=== PATIENT | female | born 1970 | race Caucasian/White ===

== ENCOUNTER 2020-11-18 21:18 | Emergency (ER) | payer BC, SELFPAY ==
[2020-11-18 21:23] VITALS: BP 132/72; PULSE 71; RESP 18; TEMP 36.8; O2SAT 98
--- NOTE | 2020-11-18 21:27 | ED.GENADUL_ITS ---
Discharge Plan Disposition Patient Disposition: HOME Condition: Good Discharge Details Clinical Impression: Allergic reaction to insect bite Primary Care Provider: Chiara Eduardo ED Provider: Curtis Guzman Meds and New Rx's Prescriptions: New prednisone 20 mg tablet 40 mg PO HS Qty: 4 RF: 0 Continued pyridostigmine bromide 60 mg tablet 60 mg PO TID RF: 0 calcium carbonate [Calcium 500] 500 mg calcium (1,250 mg) tablet 500 mg PO DAILY RF: 0 cholecalciferol (vitamin D3) 25 mcg (1,000 unit) tablet 25 mcg PO DAILY RF: 0 estradiol [Yuvafem] 10 mcg tablet 10 mcg vaginal .2x/week RF: 0 levothyroxine [Synthroid] 88 mcg tablet 88 mcg PO .4x/week RF: 0 levothyroxine [Synthroid] 100 mcg tablet 100 mcg PO .3x/week RF: 0 ibuprofen 200 mg tablet 200 - 800 mg PO PRN RF: 0 Discharge Instructions Instructions: General Allergic Reaction (ED) Additional Instructions: You may still wake up with swelling around her eyes in the morning. Hopefully the prednisone burst and continued Benadryl will help ameliorate this problem. Follow-up with primary care after prednisone burst if not improving. Return to the ED for fever, pain, eye involvement, breathing difficulty. Referrals: Chiara Eduardo MD [Primary Care Provider] - Medical Decision Making Localized allergic type reaction to insect bite involving scalp, forehead, periorbital region. No evidence of infection. No eye, oral/pharyngeal or airw ay involvement. Does have history of myasthenia but has tolerated prednisone in the past. Will provide a short 3-day burst and have her continue Benadryl as well. Follow-up with primary care if no improvement after the prednisone burst. Return to ED if worsening symptoms, fever, pain, other concerns. HPI General Mode of arrival: ambulatory . Date/Time Provider Initiated Documentation: 11/18/20 21:19 . Limitations to Documentation: no limitations . Information obtained by: patient, RN notes reviewed and old records reviewed . HPI Narrative: Patient presents to ED with swelling, pruritus, erythema along her forehead and periorbital region. Patient reports going out for a trail run this afternoon. She had multiple insect bite. She has subsequently developed pruritus, swelling does respond to oral Benadryl but recurs as the medicine weans off. Right side seems more affected to the left. Denies pain at all. No actual eye involvement. No throat or tongue symptoms. No difficulty breathing. Was concerned due to the periorbital swelling and came in for evaluation. Related Data Home Medications Medication Instructions Recorded Confirmed calcium carbonate 500 mg calcium 500 mg PO DAILY 08/21/20 11/18/20 (1,250 mg) tablet cholecalciferol (vitamin D3) 25 25 mcg PO DAILY 08/21/20 11/18/20 mcg (1,000 unit) tablet estradiol 10 mcg vaginal tablet 10 mcg VAGINAL .2x/week tab 08/21/20 11/18/20 pyridostigmine bromide 60 mg tablet 60 mg PO TID 08/21/20 11/18/20 ibuprofen 200 mg tablet 200 - 800 mg PO PRN tab 08/22/20 11/18/20 levothyroxine 100 mcg tablet 100 mcg PO .3x/week tab 08/22/20 11/18/20 levothyroxine 88 mcg tablet 88 mcg PO .4x/week tab 08/22/20 11/18/20 prednisone 40 mg PO HS #4 tab 11/18/20 Previous Rx's Medication Instructions Recorded prednisone 40 mg PO HS #4 tab 11/18/20 Allergies Allergy/AdvReac Type Severity Reaction Status Date / Time morphine Allergy Severe resp Verified 11/18/20 21:27 depression regadenoson Allergy Severe hypotension, Verified 11/18/20 21:27 limb paralysis prednisone AdvReac Intermediate see Comment Verified 11/18/20 21:27 See note AdvReac Myasthenic Uncoded 11/18/20 21:27 decompensation General Stated Complaint: Allergic GUILLERMO: 4 Review of Systems Narrative: As documented in HPI otherwise negative as below. Const: no fever, chills, weakness Resp: no cough, SOB, pleuritic pain CV: no CP, diaphoresis, edema, syncope GI: no abdominal pain, nausea, vomiting, diarrhea Neuro: no headache, numbness, focal weakness, confusion [facility] Medical History Graves disease H/O radioactive iodine thyroid ablation HTN (hypertension) Hypothyroidism Leukocytopenia, unspecified with MG crisis Maternal care for incarceration of gravid uterus (1999) Neuropathy intermittent & persistent in hands, feet, neck and/or back Premature surgical menopause (2002) CATHERINE BSO at 36 yo 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 Surgical History History of (1999) History of hysterectomy (2002) Family History Mother Dementia Social History Smoking/Tobacco Use Status: Never Smoking risk assessment performed?: Yes Alcohol Intake: current Alcohol Intake frequency: a few times a month Alcohol type: beer and wine Drug use: Never Substance use type: does not use Details: no iv drug use Adopted: No Caregiver/Support person: No Foster care: No Household members: spouse Housing: house Number of Children: 1 Education Level: college Do you need help understanding health information?: Never 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[employer] Sexually active: Yes Do you think of yourself as: straight/heterosexual Current gender identity: female What is your relationship status?: Panel score (0-1 are the most socially isolated patients): 1 What type of physical activity do you participate in: bicycling and regular exercise Frequency: daily Seatbelt use: always Helmet use: Yes Drive intox or ride w/intox 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 HEENT: NC/AT. Mild erythema involving forehead. Mild erythema and swelling involving periorbital region right greater than left. No lip, tongue, oropharyngeal edema. Eyes: Normal conjunctiva and sclera. Neck: Supple. Trachea midline. Lungs: Normal respiratory effort. Lungs are clear. Cor: RRR without murmur/gallop. Neuro: A+O x 3. Normal speech, mentation, gait. Cranial nerves II - XII grossly intact. No gross motor or sensory deficit. Skin: Warm and dry without rash. Course Vital Signs Vital signs: Vital Signs Temperature 98.2 F 11/18/20 21:23 Pulse 71 11/18/20 21:23 Respiratory Rate 18 11/18/20 21:23 Blood Pressure 132/72 06/20/21 21:23 Pulse Oximetry 98 11/18/20 21:23 Temperature 98.2 F 11/18/20 21:23 Pulse 71 11/18/20 21:23 Respiratory Rate 18 11/18/20 21:23 Blood Pressure 132/72 11/18/20 21:23 Pulse Oximetry 98 11/18/20 21:23 Pain Level 2 11/18/20 21:23
[2020-11-18] MEDS: predniSONE 20 MG TAB 40 MG PO (21:40)
== END 2020-11-18 21:46 | disposition home or self-care (01) ==
PROVIDERS: Emergency Provider Emergency Medicine; PCP Internal Medicine
DX: T63.481A Toxic effect of venom of other arthropod, accidental (unintentional), initial encounter (principal); L29.8 Other pruritus; R22.0 Localized swelling, mass and lump, head
CPT/HCPCS: 99283; J7512

== ENCOUNTER 2020-11-28 03:26 | Outpatient (CLI) | payer BC, SELFPAY ==
[2020-11-28 12:22] LABS: TSH (W/Ref FT4) 4.65 uIU/mL (0.36-3.74)
[2020-11-28 12:42] LABS: FREE T4 1.13 ng/dL (0.76-1.46)
== END 2020-11-28 03:27 | disposition home or self-care (01) ==
LOC: LBO 03:26
PROVIDERS: PCP Internal Medicine; Visit Provider Internal Medicine
DX: E03.9 Hypothyroidism, unspecified (principal)
CPT/HCPCS: 36415; 84439; 84443

== ENCOUNTER 2021-01-10 03:18 | Outpatient (CLI) | payer BC, SELFPAY ==
--- NOTE | 2021-01-10 07:45 | DI.DEXA_ITS ---
Exam(s) XR DEXA BONE DENSITY W/WO MANUEL EXAM: XR DEXA BONE DENSITY W/WO MANUEL CLINICAL HISTORY: osteopenia,f/u previous outside study,m85.80 TECHNIQUE: COMPARISON: No exams were available for comparison FINDINGS: Lateral Spine Image: Unremarkable. No compression deformities identified. Left hip: Total T-Score: -0.8 Total Z-Score: -0.2 T- and Z-scores: Within normal limits. Lumbar Spine: Total T-Score: -2.3 Total Z-Score: 1.4 T- and Z-scores: Findings consistent with osteopenia. IMPRESSION: Findings consistent with osteopenia in the lumbar spine.
== END 2021-01-10 03:38 ==
PROVIDERS: PCP Internal Medicine; Visit Provider Internal Medicine
DX: M85.80 Other specified disorders of bone density and structure, unspecified site (principal)
CPT/HCPCS: 77080

== ENCOUNTER 2021-01-30 01:51 | Outpatient (CLI) | payer BC, SELFPAY ==
--- NOTE | 2021-01-30 08:45 | DI.MAMMO_ITS ---
Exam(s) MAMMO SCREENING EXAM: MAMMO SCREENING CLINICAL HISTORY: screening,Z12.39 TECHNIQUE: Mammograms were interpreted according to the usual protocol including computer analysis w Smartaxi CAD system, tomosynthesis and C-view imaging. COMPARISON: 2015 through 2019 FINDINGS: The breasts are composed of heterogeneously dense fibroglandular densities, Breast Density category C . No suspicious masses or suspicious microcalcifications are seen. No skin thickening or abnormal axillary lymph nodes are seen. There has been no significant change from prior exams. IMPRESSION: BI-RADS Category 1, Negative mammogram. Yearly screening mammography is recommended. Breast Density Category C, heterogeneously Dense. The mammogram demonstrates the patient's breast tissue is dense. Dense breast tissue is very common a nd is not abnormal but dense breast tissue can make it harder to find cancer on a mammogram. Also, de nse breast tissue may increase breast cancer risk. This information about the result of the mammogram report was provided to the patient to raise their awareness. Use this report when you speak with the patient about their risks for breast cancer, which includes their family history. At that time, you may recommend additional screening tests (Ultrasound or MRI) as they might be useful based on their r isk. A negative radiographic report should not delay biopsy if a dominant or clinically suspicious mass is present. Up to ten percent of cancers are not identified on mammography. A negative report may reinforce clinical impression. Adenosis and dense breasts may obscure an underlying neoplasm. False positive reports average 6 to 10%.
== END 2021-01-30 02:11 ==
PROVIDERS: PCP Internal Medicine; Visit Provider Internal Medicine
DX: Z12.31 Encounter for screening mammogram for malignant neoplasm of breast (principal)
CPT/HCPCS: 77063; 77067

== ENCOUNTER 2021-02-15 14:51 | Observation (INO) | payer BC, SELFPAY ==
[2021-02-15] VITALS (53 sets, daily range): BP systolic 103–163; BP diastolic 64–88; PULSE 46–92; RESP 9–25; TEMP 36–36.5; O2SAT 94–100
--- NOTE | 2021-02-15 14:45 | RT.EKG_ITS ---
APPROVED REPORT Exam: Resting ECG Reason for Exam: chest pressure Patient Location: E HR:66 bpm ECG Measurements Heart Rate 66 AXIS [place] 127 P 76 QRSd 79 QRS 39 QT 409 T 51 QTc 429 Conclusion Sinus rhythm...normal P axis, V-rate 60- 99
--- NOTE | 2021-02-15 15:15 | DI.RAD_ITS ---
Exam(s) XR CHEST 2V PA LATERAL EXAM: XR CHEST 2V PA LATERAL CLINICAL HISTORY: chest pain. TECHNIQUE: 2D digital imaging was performed. COMPARISON: No exams were available for comparison FINDINGS: Heart size is normal. The mediastinum is not widened. Lungs are clear. No infiltrates nor pleural effusions. Bidirectional scoliosis noted. IMPRESSION: No acute pulmonary findings. DATA REPOSITORY: RADIATION DOSE DELIVERED:
[2021-02-15] MEDS: nitroGLYcerin 0.4 MG TAB SL ×2 (15:35→16:47)
[2021-02-15] MEDS: Aspirin 81 MG CHEW 324 MG CH (15:35)
[2021-02-15 15:49] LABS: Abs Immature Grans 0.01 10^3/uL (0.0-0.06); Absolute Basophil Count 0.05 10^3/uL (0.0-0.2); Absolute Eosinophil Count 0.11 10^3/uL (0.0-0.7); Absolute Monocyte Count 0.32 10^3/uL (0.1-0.8); Absolute Neutrophil Count 1.91 10^3/uL (1.2-6.7); Basophils % 1.3; Eosinophils % 2.9; HCT 45.4 % (36.0-46.0); HGB 14.9 g/dL (11.2-15.7); Immature Grans % 0.3; Lymphocytes % 36.8; MCH 31.4 pg (27.0-33.0); MCHC 32.8 % (32.0-36.0); MCV 95.8 fL (80-95); MPV 10.7 fL (8.0-11.0); Monocytes % 8.4; Neutrophils % 50.3; Nucleated RBC 0 %; Platelet Count 251 10^3/uL (130-400); RBC 4.74 10^6/uL (3.93-5.22); RDW 12.2 % (11.7-14.6); RDW-SD 43.3 fL
[2021-02-15 15:59] LABS: ALT 44 U/L (14-59); AST 29 U/L (15-37); Albumin 4.3 g/dL (3.4-5.0); Alkaline Phosphatase 75 U/L (46-116); Anion Gap 6.6 mmol/L (3-11); BUN 10 mg/dL (7-18); Bilirubin, Total 0.4 mg/dL (0.2-1.0); CO2 29.4 mmol/L (21.0-32.0); CREATININE 0.9 mg/dL (0.55-1.02); Calcium 9.1 mg/dL (8.5-10.1); Chloride 103 mmol/L (98-107); Glucose 116 mg/dL (74-106); Potassium 3.7 mmol/L (3.5-5.1); Sodium 139 mmol/L (136-145); TSH (W/Ref FT4) 6.32 uIU/mL (0.36-3.74); Total Protein 7.8 g/dL (6.4-8.2); Troponin I < 0.05 ng/mL (<0.06)
--- NOTE | 2021-02-15 16:03 | ED.GENADUL_ITS ---
Discharge Plan Disposition Condition: Good Discharge Details Chief Complaint: Chest Pain Admit Date/Time: 02/15/21 18:13 Admit Provider: Kody Alvares Attending Provider: Kody Alvares Primary Care Provider: Chiara Eduardo ED Provider: Allie Brody Discharge Instructions Activity:: Activity as Tolerated Equipment/Supplies:: No Equipment Needed Diet:: Normal Diet Discharge Orders Discharge Orders: Discharge Order (Routine); Ordered 02/16/21 Ordered By: Italo Devine Discharge Data Discharge Date/Time-TO BE ENTERED AT DEPARTURE: 02/15/21 18:45 Medical Decision Making <CHUCHO Landeros - Last Filed: 02/15/21 16:55> Patient had resolution of pain with nitroglycerin, given 324 of chewable aspirin, heart score is a 3, she is quite low risk however story is certainly concerning Low suspicion for AAA given presentation, good distal pulses, and HPI Nitroglycerin upon necessitate admission, and is not necessarily indicative of anginal symptoms Neutropenia, patient states this is her baseline TSH 6.32, slightly elevated, free T4 within normal limits Given concerning story, and patient will likely be admitted to the hospital She is pending repeat troponin, initial troponin was negative D-dimer negative with low risk patient Pain returned around 1630 and an additional nitroglycerin was initiated Dr. Perez evaluate patient at 1640 and care will be transitioned to him at this time pending repeat troponin 30 and repeat EKG Initial EKG with RSR in V2, symmetrical flattening, normal sinus rhythm, frequent my attendings documentation <Igor Perez MD - Last Filed: 02/21/21 18:35> Patient was signed out to me by CHUCHO Brody with plan to reassess and follow-up on delta troponin. I evaluated the patient. She notes pain improved after initial sublingual nitroglycerin. Now returning and currently 08/08. I will give second dose nitro SL. I am concerned on potential for thoracic aortic dissection given relative hypertension impaired the patient's normal and chest pain earlier radiating st raight through to her back. CTA of the chest was obtained and interpreted by radiology: No acute abnormality of thoracic aorta. Small hiatal hernia. Delta troponin negative. Repeat EKG was reviewed and interpreted by me: No STEMI, no significant changes, nondiagnostic. Patient reassessed after second sublingual nitro and notes pain almost completely gone. I will initiate treatment with nitroglycerin paste and provide aspirin 325 mg. HPI <CHUCHO Landeros - Last Filed: 02/15/21 16:55> General Mode of arrival: ambulatory . Date/Time Provider Initiated Documentation: 02/15/21 14:52 . Limitations to Documentation: no limitations . Information obtained by: patient . HPI Narrative: This 50-year-old female with history of myasthenia gravis and hypothyroidism presents with report of chest pressure that started at 9:00 this morning. States that the pain radiated through to her back and down her left arm. Denies ripping or tearing sensation. . Denies dizziness or weakness. States she is she is under significant stress at work and at home. Denies tobacco abuse or early cardiac family history in her immediate family. Denies any history of coronary artery disease or hyperlipidemia. Patient does have a maternal aunt who succombed from DE at the age of 59 who is otherwise healthy. Denies any shortness of breath today but states that she did have some shortness of breath with exertion this weekend. She states that she is very active and typically bikes and runs every weekend. She states that at the beginning of her biking around she has some shortness of breath and pain at that time. She states she has a stress test several years ago that was normal. She is unable to receive nuclear med stress test secondary to myasthenia gravis. She denies recent flights, surgeries, long drives. Denies prior history of coagulopathy. She denies any fever or chills. She denies any exertional chest pain today. She states she was seated at her computer when the pain started she describes it as a pressure sensation in the center of her chest. She does have a listed history of hypertension although she is not on any medication for this and states that her blood pressure is typically 110/70 uncorrected with medication. Related Data Home Medications Medication Instructions Recorded Confirmed calcium carbonate 500 mg calcium 500 mg PO DAILY 08/21/20 02/19/21 (1,250 mg) tablet cholecalciferol (vitamin D3) 25 25 mcg PO DAILY 08/21/20 02/19/21 mcg (1,000 unit) tablet estradiol 10 mcg vaginal tablet 10 mcg VAGINAL .2x/week tab 08/21/20 02/19/21 pyridostigmine bromide 60 mg tablet 60 mg PO TID 08/21/20 02/19/21 ibuprofen 200 mg tablet 200 - 800 mg PO PRN tab 08/22/20 02/19/21 levothyroxine 100 mcg tablet 100 mcg PO .3x/week tab 08/22/20 02/19/21 levothyroxine 88 mcg tablet 88 mcg PO .4x/week tab 08/22/20 02/19/21 estradiol See Rx Instructions VAGINAL 12/18/20 02/19/21 .COMPLEX PRN #42.5 g lorazepam 0.5 mg tablet 0.5 mg PO QHS PRN #30 tab MDD 0.5 02/19/21 02/19/21 mg Previous Rx's Medication Instructions Recorded estradiol See Rx Instructions VAGINAL 12/18/20 .COMPLEX PRN #42.5 g lorazepam 0.5 mg tablet 0.5 mg PO QHS PRN #30 tab MDD 0.5 02/19/21 mg Allergies Allergy/AdvReac Type Severity Reaction Status Date / Time morphine Allergy Severe resp Verified 02/15/21 15:17 depression regadenoson Allergy Severe hypotension, Verified 02/15/21 15:17 limb paralysis prednisone AdvReac Intermediate see Comment Verified 02/15/21 15:17 See note AdvReac Myasthenic Uncoded 02/15/21 15:17 decompensation General Stated Complaint: Chest Pain GUILLERMO: 2 Review of Systems <CHUCHO Landeros - Last Filed: 02/15/21 16:55> All systems reviewed & are unremarkable except as noted in HPI and below PFSH <CHUCHO Landeros - Last Filed: 02/15/21 16:55> Medical History Graves disease H/O radioactive iodine thyroid ablation HTN (hypertension) Hypothyroidism Leukocytopenia, unspecified with MG crisis Maternal care for incarceration of gravid uterus (1999) Neuropathy intermittent & persistent in hands, feet, neck and/or back Premature surgical menopause (2002) CATHERINE BSO at 36 yo 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 Surgical History History of (1999) History of hysterectomy (2002) Family History Mother Dementia Social History Smoking/Tobacco Use Status: Never Smoking risk assessment performed?: Yes Alcohol Intake: current Alcohol Intake frequency: a few times a month Alcohol type: beer and wine Drug use: Never Substance use type: does not use Details: no iv drug use Adopted: No Caregiver/Support person: No Foster care: No Household members: spouse Housing: house Number of Children: 1 Education Level: college Do you need help understanding health information?: Never 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[employer] Sexually active: Yes Do you think of yourself as: straight/heterosexual Current gender identity: female What is your relationship status?: Panel score (0-1 are the most socially isolated patients): 1 What type of physical activity do you participate in: bicycling and regular exercise Frequency: daily Seatbelt use: always Helmet use: Yes 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 Working smoke detector in home: Yes Fire extinguisher in home: Yes Carbon monox detector in home: Yes Do you feel safe at home: Yes Do you feel safe in your relationship?: Yes Exam <CHUCHO Landeros - Last Filed: 02/15/21 16:55> Const General: cooperative, comfortable and no acute distress Eyes Sclera: sclerae normal Chest Chest: normal inspection of the chest Other: No reproducible chest wall tenderness, no rashes or lesions, no murmurs or rubs Resp Effort & Inspection: normal respiratory effort Auscultation: clear to auscultation bilaterally Cardio Rate: regular rate Rhythm: regular rhythm GI Inspection: normal to inspection Other: No abdominal tenderness Specifically no abdominal bruit or pulsatile mass Skin General skin exam: no rashes or lesions noted Neuro General: patient alert and patient oriented x3 Psych Appearance: grossly normal and well kempt Course <CHUCHO Landeros - Last Filed: 02/15/21 16:55> Vital Signs Vital signs: Vital Signs Pulse Oximetry 98 02/15/21 14:55 Temperature 36.0 C L 02/15/21 15:43 Temperature Source Skin 02/15/21 15:43 Pulse 85 02/15/21 15:43 Pulse 64 02/15/21 15:31 Respiratory Rate 20 02/15/21 15:43 Respiratory Effort 02/15/21 15:06 Respiratory Depth Normal 02/15/21 15:06 Respiratory Pattern Normal 02/15/21 15:06 Blood Pressure 126/82 02/15/21 15:43 Blood Pressure Mean 88 02/15/21 15:31 Pulse Oximetry 98 02/15/21 15:43 Oxygen Delivery Method Room Air 02/15/21 15:43 Oxygen Flow Rate 0 02/15/21 15:43 Pain Level 2 02/15/21 15:43 Comment 02/15/21 15:01 Lab/Test Results Lab/Test Results: Laboratory Tests Range/Units 02/15/21 02/15/21 15:00 15:00 WBC (4.4-10.8) 10^3/uL 3.80 L RBC (3.93-5.22) 10^6/uL 4.74 Hgb (11.2-15.7) g/dL 14.9 Hct (36.0-46.0) % 45.4 MCV (80-95) fL 95.8 H MCH (27.0-33.0) pg 31.4 MCHC (32.0-36.0) % 32.8 RDW (11.7-14.6) % 12.2 Plt Count (130-400) 10^3/uL 251 MPV (8.0-11.0) fL 10.7 Immature Gran % 0.3 Neutrophils % 50.3 Lymphocytes % 36.8 Monocytes % 8.4 Eosinophils % 2.9 Basophils % 1.3 Nucleated RBC % % 0 Absolute Neutrophils (1.2-6.7) 10^3/uL 1.91 Absolute Lymphocytes (1.2-3.4) 10^3/uL 1.40 Absolute Monocytes (0.1-0.8) 10^3/uL 0.32 Absolute Eosinophils (0.0-0.7) 10^3/uL 0.11 Absolute Basophils (0.0-0.2) 10^3/uL 0.05 Sodium (136-145) mmol/L 139 Potassium (3.5-5.1) mmol/L 3.7 Chloride (98-107) mmol/L 103 Carbon Dioxide (21.0-32.0) mmol/L 29.4 Anion Gap (3-11) mmol/L 6.6 BUN (7-18) mg/dL 10 Creatinine (0.55-1.02) mg/dL 0.9 Estimated GFR/1.73 m2 (mL/min/1.73m2) >= 60.00 Glucose (74-106) mg/dL 116 H Calcium (8.5-10.1) mg/dL 9.1 Total Bilirubin (0.2-1.0) mg/dL 0.4 AST (15-37) U/L 29 ALT (14-59) U/L 44 Alkaline Phosphatase (46-116) U/L 75 Troponin I (<0.06) ng/mL < 0.05 Total Protein (6.4-8.2) g/dL 7.8 Albumin (3.4-5.0) g/dL 4.3 TSH (0.36-3.74) uIU/mL 6.32 H
[2021-02-15 16:12] LABS: D-Dimer 133 ng/mlFEU (<500)
[2021-02-15 16:16] LABS: FREE T4 1.21 ng/dL (0.76-1.46)
--- NOTE | 2021-02-15 16:52 | DI.VRAD_ITS ---
PROCEDURE INFORMATION: Exam: XR Chest Exam date and time: 02/15/2021 3:24 PM Age: 50 years old Clinical indication: Other: Not specified; Patient HX: Chest pain TECHNIQUE: Imaging protocol: XR of the chest. Views: 2 views. COMPARISON: No relevant prior studies available. FINDINGS: Lungs: Unremarkable. No consolidation. Pleural spaces: Unremarkable. No pleural effusion. No pneumothorax. Heart/Mediastinum: Unremarkable. No cardiomegaly. Bones/joints: Unremarkable. IMPRESSION: No acute findings. Dictated and Authenticated by: Curtsi Hedrick MD. Ordering:ISMAEL Kelley MD
--- NOTE | 2021-02-15 17:00 | DI.CT_ITS ---
Exam(s) CT THORAX CTA EXAM: CT THORAX CTA CLINICAL HISTORY: chest pain that radiated to her back. TECHNIQUE: Imaging Protocol: CT angiography of the chest was performed using pulmonary embolus jase col. Multi planar reconstructions were performed. CONTRAST MATERIAL: Intravenous: Omnipaque 350 Contrast volume: 100 cc COMPARISON: No exams were available for comparison FINDINGS: CHEST: THORACIC AORTA: There is no significant dilatation of the ascending thoracic aorta which exhibits max imum diameter 3.2 cm. Diameter of the arch is 2.5 cm. Diameter of the proximal descending thoracic aorta is 2.2 cm. Diameter of the mid-distal thoracic aorta is also 2.2 cm. There is no significant atherosclerotic involvement of the thoracic aorta. No dissection. Aortic arch anatomy is convention al. No stenosis at the origin of the great vessels. Heart size is normal. There is no pericardial effusion. PULMONARY ARTERIES: Not opacified LUNGS: There are no infiltrates nor evidence of pulmonary infarction.. There are no pleural effusions . MEDIASTINUM: There is no hilar nor mediastinal adenopathy. Visualized thyroid is small. CARDIAC: Heart size is upper normal. There is no pericardial effusion.Caliber of the thoracic aorta is within normal limits. PARTIALLY VISUALIZED UPPERMOST ABDOMEN: No obvious findings OSSEOUS: No significant osseous lesions.. IMPRESSION: 1. No significant findings in the thoracic aorta..No dissection. No pericardial effusion. 2. No acute pulmonary findings nor pleural effusions. No intrathoracic adenopathy. RADIATION DOSE DELIVERED: 316.36mGy.cm Total DLP DATA REPOSITORY: All CT scans at this facility are submitted to the National Radiology Data Registry (NRDR) Dose Index Registry (DIR) with the [employer] ([employer]). RADIATION OPTIMIZATION: All CT scans at this facility use at least one of these dose optimization te chniques: automated exposure control; mA and/or kV adjustment per patient size (includes targeted exa ms where dose is matched to clinical indication); or iterative reconstruction.
[2021-02-15] MEDS: Omnipaque 350 MG/ML 100 ML BTL IJ (17:29)
--- NOTE | 2021-02-15 17:41 | DI.VRAD_ITS ---
PROCEDURE INFORMATION: Exam: CTA Chest With Contrast Exam date and time: 02/15/2021 5:08 PM Age: 50 years old Clinical indication: Patient HX: Chest pain radiating to back TECHNIQUE: Imaging protocol: Computed tomographic angiography of the chest with contrast. 3D rendering (Not supervised by radiologist): MIP and/or 3D reconstructed images were created by the technologist. COMPARISON: CR XR CHEST 2V PA LATERAL 02/15/2021 4:15 PM FINDINGS: Pulmonary arteries: No gross abnormality. Aorta: No evidence of thoracic aortic aneurysm, dissection, or significant atherosclerotic disease. Incidental note is made of a small ductus diverticulum. Lungs: Unremarkable. No consolidation. No masses. Pleural spaces: Unremarkable. No pneumothorax. No pleural effusion. Heart: Unremarkable. No cardiomegaly. No pericardial effusion. Mediastinal space: Small hiatal hernia. Lymph nodes: Unremarkable. No enlarged lymph nodes. Bones/joints: Unremarkable. No acute fracture. Soft tissues: Unremarkable. IMPRESSION: 1. No acute abnormality of the thoracic aorta. 2. Small hiatal hernia. Dictated and Authenticated by: Curtis Hedrick MD. Ordering:UVALDO Costa MD
[2021-02-15] MEDS: nitroGLYcerin 2% 1 INCH/1 GM PKT TP (18:15)
--- NOTE | 2021-02-15 18:15 | RT.EKG_ITS ---
APPROVED REPORT Exam: Resting ECG Reason for Exam: 1821 Patient Location: E HR:58 bpm ECG Measurements Heart Rate 58 AXIS [place] 129 P 45 QRSd 70 QRS 27 QT 436 T 51 QTc 428 Conclusion Sinus bradycardia...rate< 60 Low voltage, precordial leads...precordial leads <1.0mV
[2021-02-15 18:26] LABS: Troponin I < 0.05 ng/mL (<0.06)
[2021-02-15 19:42] LABS: Source Nasal/Nares
--- NOTE | 2021-02-15 21:28 | W.PM.HP.N ---
Date of service: 02/15/21 Time of Service: 21:28 Assessment and Plan Assessment and plan (1) Chest pain: Status: Acute Assessment and plan: Her electrocardiogram shows only minor ST depression in multiple leads but is not significant for ischemia. Her CT scan and chest x-ray are normal. Her pain is suggestive of cardiac disease but she is very active and I think coronary artery disease is not very likely. She has been given nitroglycerin topically and aspirin orally. These will be continued and her troponin and electrocardiogram should be rechecked in the morning. She may likely need further cardiac testing. Her meds for myasthenia gravis will be continued during her hospital stay. History of Present Illness History of Present Illness Chief Complaint: chest pain Narrative: This 50-year-old female is here because of chest pain. She developed chest pressure this morning about 9 AM. At was present throughout the day until she came to the emergency department where she was given nitroglycerin. This relieved her pain. After bed the pain seemed to recur and she was given a second nitroglycerin tablet with improvement and then was put on nitroglycerin patch. She has had some episodes of chest discomfort in the past and did have a cardiac evaluation about 5 years ago that involved a nuclear stress test. However she developed a paralytic reaction that was likely due to the nuclear dye and she recovered from that but has not had any further nuclear studies. She not been around anyone else been sick nor she had any Covid exposure that she is aware of. She has not had any cough chills or fever. The pain she describes as a heavy type feeling like a bowling ball on her chest with radiation through to her back occasionally into the left arm. She says this pain is different than what she is experienced in the past. She has had some associated nausea and decreased appetite today. At the worst the pain was approximately 5 out of 10 intensity. She has no pain at the present time. When she had the chest pain this morning she measured a blood pressure and it was 150/90 another time is 175/110. Normally her blood pressure is well controlled with blood pressure is about 110 systolic. She did feel a bit dyspneic with the pain today. She is normally very active and she mountain bikes and runs regularly. She does not use tobacco and drinks alcohol very rarely. She has a history of myasthenia gravis which has been well controlled. Review of Systems Constitutional Constitutional: Denies body ache(s), Denies chills, Denies fever(s), Denies increased appetite and Reports poor appetite ENT Ears, Nose, Mouth, and Throat: Denies odynophagia Cardiovascular Cardiovascular: Reports chest pain, Denies chest pain with activity, Denies diaphoresis, Denies syncope, Denies lightheadedness, Denies palpitations and Reports dyspnea Respiratory Respiratory: Denies hemoptysis, Denies pain on inspiration, Denies pain with cough, Reports dyspnea and Denies wheezing Gastrointestinal Gastrointestinal: Denies melena, Denies diarrhea, Reports nausea, Denies odynophagia and Denies vomiting Genitourinary Genitourinary: Denies urinary frequency and Denies difficulty voiding Neurologic Neurologic: Denies syncope Endocrine Endocrine: Denies palpitations Allergic/Immunologic Allergic/Immunologic: Denies wheezing [facility] Medical History Graves disease H/O radioactive iodine thyroid ablation HTN (hypertension) Hypothyroidism Leukocytopenia, unspecified with MG crisis Maternal care for incarceration of gravid uterus (1999) Neuropathy intermittent & persistent in hands, feet, neck and/or back Premature surgical menopause (2002) CATHERINE BSO at 36 yo 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 Surgical History History of (1999) History of hysterectomy (2002) Family History Mother Dementia Social History Smoking/Tobacco Use Status: Never Smoking risk assessment performed?: Yes Alcohol Intake: current Alcohol Intake frequency: a few times a month Alcohol type: beer and wine Drug use: Never Substance use type: does not use Details: no iv drug use Adopted: No Caregiver/Support person: No Foster care: No Household members: spouse Housing: house Number of Children: 1 Education Level: college Do you need help understanding health information?: Never 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[employer] Sexually active: Yes Do you think of yourself as: straight/heterosexual Current gender identity: female What is your relationship status?: Panel score (0-1 are the most socially isolated patients): 1 What type of physical activity do you participate in: bicycling and regular exercise Frequency: daily Seatbelt use: always Helmet use: Yes Drive intox or ride w/intox auto carrier driver: No Working smoke detector in home: Yes Fire extinguisher in home: Yes Carbon monox detector in home: Yes Do you feel safe at home: Yes Do you feel safe in your relationship?: Yes Meds Allergies and Home Medications Allergies Allergy/AdvReac Type Severity Reaction Status Date / Time morphine Allergy Severe resp Verified 02/15/21 15:17 depression regadenoson Allergy Severe hypotension, Verified 02/15/21 15:17 limb paralysis prednisone AdvReac Intermediate see Comment Verified 02/15/21 15:17 See note AdvReac Myasthenic Uncoded 02/15/21 15:17 decompensation Home Medications Medication Instructions Recorded Confirmed Type calcium carbonate 500 mg calcium 500 mg PO DAILY 08/21/20 02/15/21 History (1,250 mg) tablet cholecalciferol (vitamin D3) 25 25 mcg PO DAILY 08/21/20 02/15/21 History mcg (1,000 unit) tablet estradiol 10 mcg vaginal tablet 10 mcg VAGINAL .2x/week tab 08/21/20 02/15/21 History pyridostigmine bromide 60 mg tablet 60 mg PO TID 08/21/20 02/15/21 History ibuprofen 200 mg tablet 200 - 800 mg PO PRN tab 08/22/20 02/15/21 History levothyroxine 100 mcg tablet 100 mcg PO .3x/week tab 08/22/20 02/15/21 History levothyroxine 88 mcg tablet 88 mcg PO .4x/week tab 08/22/20 02/15/21 History estradiol See Rx Instructions VAGINAL 12/18/20 12/18/20 Rx .COMPLEX PRN #42.5 g Exam Const General: cooperative, healthy appearing, comfortable, no acute distress, well developed, not ill appearing and does not appear intoxicated Nutritional Appearance: well nourished Orientation: alert, awake and oriented x3 Neck Neck: normal visual inspection and no lymphadenopathy Thyroid: thyroid normal Resp Effort & Inspection: normal respiratory effort and able to speak in complete sentences Auscultation: no rales, no rhonchi and no wheezes Cardio Jugular venous pressure: no JVD Rate: regular rate Heart Sounds: S1 normal, S2 normal, no click, no gallops and no murmurs GI Inspection: normal to inspection Palpation: soft, no hepatosplenomegaly, not rigid and nontender Neuro Cranial Nerves: CN's II-XI intact bilaterally Extrem General: normal to inspection and no edema Results Labs Result diagrams: 02/15/21 15:00 02/15/21 15:00 Labs: Laboratory Results - last 24 hr 02/15/21 02/15/21 02/15/21 15:00 15:00 15:00 WBC 3.80 L RBC 4.74 Hgb 14.9 Hct 45.4 MCV 95.8 H MCH 31.4 MCHC 32.8 RDW 12.2 Plt Count 251 MPV 10.7 Immature Gran % 0.3 Neutrophils % 50.3 Lymphocytes % 36.8 Monocytes % 8.4 Eosinophils % 2.9 Basophils % 1.3 Nucleated RBC % 0 Absolute Neutrophils 1.91 Absolute Lymphocytes 1.40 Absolute Monocytes 0.32 Absolute Eosinophils 0.11 Absolute Basophils 0.05 D-Dimer 133 Sodium 139 Potassium 3.7 Chloride 103 Carbon Dioxide 29.4 Anion Gap 6.6 BUN 10 Creatinine 0.9 Estimated GFR/1.73 m2 >= 60.00 Glucose 116 H Calcium 9.1 Total Bilirubin 0.4 AST 29 ALT 44 Alkaline Phosphatase 75 Troponin I < 0.05 Total Protein 7.8 Albumin 4.3 TSH 6.32 H Free T4 1.21 COVID-19 Source 02/15/21 02/15/21 18:05 19:30 WBC RBC Hgb Hct MCV MCH MCHC RDW Plt Count MPV Immature Gran % Neutrophils % Lymphocytes % Monocytes % Eosinophils % Basophils % Nucleated RBC % Absolute Neutrophils Absolute Lymphocytes Absolute Monocytes Absolute Eosinophils Absolute Basophils D-Dimer Sodium Potassium Chloride Carbon Dioxide Anion Gap BUN Creatinine Estimated GFR/1.73 m2 Glucose Calcium Total Bilirubin AST ALT Alkaline Phosphatase Troponin I < 0.05 Total Protein Albumin TSH Free T4 COVID-19 Source Nasal/Nares Last Vital Signs Temp 36.5 C 02/15/21 20:08 Pulse 51 L 02/15/21 20:08 Resp 17 02/15/21 20:08 BP 122/78 02/15/21 20:08 Pulse Ox 99 02/15/21 20:08
[2021-02-15 21:31] LABS: COVID-19 PCR Negative (Negative)
[2021-02-15 22:13] LABS: Lipase 153 U/L (73-393)
[2021-02-16] MEDS: nitroGLYcerin 2% 1 INCH/1 GM PKT TP (00:18)
[2021-02-16 03:10] VITALS: BP 100/62; PULSE 55; RESP 18; TEMP 37; O2SAT 96
[2021-02-16] MEDS: Levothyroxine 88 MCG TAB PO (05:57)
[2021-02-16 07:01] LABS: Absolute Basophil Count 0.04 10^3/uL (0.0-0.2); Absolute Eosinophil Count 0.12 10^3/uL (0.0-0.7); Absolute Lymphocyte Count 1.07 10^3/uL (1.2-3.4); Absolute Monocyte Count 0.34 10^3/uL (0.1-0.8); Absolute Neutrophil Count 1.65 10^3/uL (1.2-6.7); Basophils % 1.2; Eosinophils % 3.7; HCT 42.5 % (36.0-46.0); HGB 13.6 g/dL (11.2-15.7); Lymphocytes % 33.2; MCH 30.6 pg (27.0-33.0); MCV 95.7 fL (80-95); MPV 10.5 fL (8.0-11.0); Monocytes % 10.6; Neutrophils % 51.3; Nucleated RBC 0 %; Platelet Count 205 10^3/uL (130-400); RBC 4.44 10^6/uL (3.93-5.22); RDW 12.3 % (11.7-14.6); RDW-SD 43.3 fL; WBC 3.22 10^3/uL (4.4-10.8)
[2021-02-16 07:08] VITALS: BP 118/77; PULSE 52; RESP 16; TEMP 36.5; O2SAT 97
[2021-02-16 07:30] LABS: Anion Gap 6.5 mmol/L (3-11); BUN 11 mg/dL (7-18); CO2 27.5 mmol/L (21.0-32.0); Calcium 8.9 mg/dL (8.5-10.1); Chloride 106 mmol/L (98-107); Estimated GFR 58.22 (mL/min/1.73m2); Glucose 92 mg/dL (74-106); Potassium 3.8 mmol/L (3.5-5.1); Sodium 140 mmol/L (136-145)
[2021-02-16 07:32] LABS: Troponin I < 0.05 ng/mL (<0.06)
[2021-02-16] MEDS: Cholecalciferol (Vitamin D3) 1,000 UNIT TAB 1000 UNITS PO (08:42)
[2021-02-16] MEDS: Calcium Carbonate 1.25 GM TAB 0.5 GM PO (08:42)
[2021-02-16] MEDS: Aspirin E.C. 81 MG TABEC PO (08:42)
--- NOTE | 2021-02-16 10:00 | RT.EKG_ITS ---
APPROVED REPORT Exam: Resting ECG Reason for Exam: chest pain Patient Location: I HR:58 bpm ECG Measurements Heart Rate 58 AXIS TN 131 P 49 QRSd 74 QRS 27 QT 408 T 46 QTc 400 Conclusion Sinus bradycardia...rate< 60 Low voltage, precordial leads...precordial leads <1.0mV
--- NOTE | 2021-02-16 10:40 | INITIAL_ITS ---
- If Service Date Differs Date of service: 02/16/21 Time of Service: 10:40 Care Management Initial Assess REASON FOR HOSPITALIZATION:: Chest pain. PAST MEDICAL HISTORY/PAST SURGICAL HISTORY:: Medical History: Graves disease, H/O radioactive iodine thyroid ablation,. HTN (hypertension), Hypothyroidism, Leukocytopenia, unspecified - with MG crisis; Maternal care for incarceration of gravid uterus (1999), Neuropathy - intermittent & persistent in hands, feet, neck and/or back,. Premature surgical menopause (2002) - CATHERINE BSO at 36 yo, and Transient limb paralysis - due to Lexiscan administered for nuclear stress test. Surgical History: History of (1999) and History of hysterectomy (2002). PREVIOUS FUNCTIONAL STATUS/SOCIAL/FAMILY SUPPORTS:: Cheyenne resides in [place] with her , Vincent. They have a son who is attending college at [employer] and lives on campus. 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 She is independent at baseline. CURRENT FUNCTIONAL STATUS:: Cheyenne is sitting up in bed when comes to meet with her. She is pleasant and easily engages in conversation. She shares she was in a meeting at work yesterday when she began having chest pain. She reports feeling better today and is looking forward to returning home. ADVANCE DIRECTIVES:: None on file; Cheyenne accepts a form from to complete at her leisure. Has patient been provided with info about the portal/API?: Yes Did the patient sign up for the portal?: Yes (Previously enrolled) CODE STATUS:: Full Code INSURANCE COVERAGE / FINANCIAL ISSUES:: BS. CURRENT HOME/COMMUNITY SERVICES/EQUIPMENT:: Cheyenne is independent at baseline and does not currently have any home/community services or equipment. PRIMARY CARE PHYSICIAN:: Chiara Eduardo MD. POTENTIAL DISCHARGE NEEDS:: Follow up appointment with PCP and outpatient treadmill stress test. PATIENT/FAMILY EDUCATION NEEDS:: Discharge instructions, limitations, and follow up plan of care, including Ask Me Three and self management. ANTICIPATED BARRIERS TO DISCHARGE:: No anticipated barriers. TRANSPORTATION:: Cheyenne will drive herself home via private vehicle. PLAN:: Cheyenne will likely be discharged home with no new services when medically cleared by provider. She will follow up with her PCP and discharge plan of care as directed and will have an outpatient treadmill stress test. She will drive herself home via private vehicle when ready, as her car is in the [facility] parking lot. CM will continue to support Cheyenne and discharge planning needs.
[2021-02-16 11:45] VITALS: BP 124/82; PULSE 63; RESP 16; TEMP 36.7; O2SAT 96
--- NOTE | 2021-02-16 12:02 | DSE_ITS ---
Date of service: 02/16/21 Time of Service: 12:02 DS: Diagnosis Discharge Diagnosis (1) Chest pain: Status: Resolved Asessment and Plan: see admission note/H&P for details of current HPI and PMH. Patient presented w/ nonexertional chest pains that lasted all day from 9 am yesterday morning until she arrived to the ER around 3 pm. Chest discomfort was relieved w/ NTG. EKG demonstrated normal sinus rhythm w/out ischemic or injury patterns and serial troponin I levels were normal x 3 sets (two done yesterday about 3 hour apart and one done today). Repeat EKG this morning continues to show normal sinus rhythm w/ no ischemia or injury pattern. Thoracic CT w/ contrast was performed on admission and did not show any PE or thoracic aneurysm. Patient has remained pain free and free of any dyspnea since admission. Patient is advised to get outpatient exercise treadmill stress ECG next week. She has low risks factors for CAD (negative for HTN, DM, FH). She had prior stress MPI a few years ago while living in [facility] which was prematurely stopped d/t reaction to the Regadenosan. Patient was adivsed of symptoms of UT and told to return to the emergency room if she has recurrent chest tightness/pain, dyspnea or dizziness or palpitations. An exercise treadmill stress test has been ordered for the patient. Diagnostic imaging should call the patient next week to set a date/time for this. Discharge Plan Disposition Patient Disposition: HOME Condition: Good Discharge Details Reason For Visit: Chest Pain Admit Date/Time: 02/15/21 18:13 Admit Provider: Kody Alvares Attending Provider: Kody Alvares Primary Care Provider: Chiara Eduardo Home Meds and New Rx's Prescriptions: No Action pyridostigmine bromide 60 mg tablet 60 mg PO TID RF: 0 calcium carbonate [Calcium 500] 500 mg calcium (1,250 mg) tablet 500 mg PO DAILY RF: 0 cholecalciferol (vitamin D3) 25 mcg (1,000 unit) tablet 25 mcg PO DAILY RF: 0 estradiol [Yuvafem] 10 mcg tablet 10 mcg vaginal .2x/week RF: 0 levothyroxine [Synthroid] 88 mcg tablet 88 mcg PO .4x/week RF: 0 levothyroxine [Synthroid] 100 mcg tablet 100 mcg PO .3x/week RF: 0 ibuprofen 200 mg tablet 200 - 800 mg PO PRN RF: 0 estradiol [Estrace] 0.01 % (0.1 mg/gram) cream See Rx Instructions vaginal .COMPLEX PRN (Reason: vaginal irritation) Qty: 42.5 RF: 5 Discharge Instructions Instructions: Chest Pain (DC) Additional Instructions: Your tests have shown no evidence of an acute myocardial infarction (UT) and no evidence for thoracic aortic aneurysm or pulmonary embolus. However, your symptoms of chest pain require follow up including an outpatient treadmill stress test. Should you have recurrent chest pains or shortness of breath or dizziness or palpitations, do not hesitate returning to the emergency department for re-evaluation. An outpatient treadmill stress test has been ordered. You should receive a call from [facility] specialty clinic or radiology to arrange a date/time for your stress test. Stand Alone Forms: Nursing Discharge Form Referrals: [facility] Diagnostic Imaging [Other] (Office will call you with appointment) Chiara Eduardo MD [Primary Care Provider] - (call the office for follow up next week) Activity:: Activity as Tolerated Equipment/Supplies:: No Equipment Needed Diet:: Normal Diet Discharge Orders Discharge Orders: Discharge Order (Routine); Ordered 02/16/21 Ordered By: Italo Roy Ambulatory Orders: ETT Stress Test (Outpt) (ONCE) Timeframe: [id number] Facility: [facility] - Location: DIAGNOSTIC IMAGING DEPT Ordered By: Italo Devine DS: Summary Time Spent with Patient providing and/or coordinating discharge services: Less than 30 minutes Specific discharge activities: ordering of stress test; discussion of warning signs/symptoms to watch for and would warrant return to the hospital Status at Discharge Functional status at discharge: independent ambulation Overall status at discharge: patient is back to baseline Mental Status: mental status grossly normal Speech and Movement: speech and movement normal Mood: congruent mood Affect: normal affect Exam Narrative Exam Narrative: Middle age female who is alert/oriented x 3, sitting up at her bedside, no discomort Lungs: clear Heart: RRR, no murmur or rub or clicks Abdomen: soft, nontender Psych Mental Status: mental status grossly normal Speech and Movement: speech and movement normal Mood: congruent mood Affect: normal affect DS: Data Vitals/I&O Vitals and I&O: Vital Signs Temperature 36.7 C 02/16/21 11:45 Temperature Source Tympanic 02/16/21 11:45 Pulse 63 02/16/21 11:45 Pulse Rhythm Regular 02/16/21 05:34 Pulse 62 02/15/21 18:40 Respiratory Rate 16 02/16/21 11:45 Respiratory Effort Non-Labored 02/16/21 05:34 Respiratory Depth Normal 02/16/21 05:34 Respiratory Pattern Normal 02/16/21 05:34 Blood Pressure 124/82 02/16/21 11:45 Blood Pressure Mean 82 02/15/21 18:40 Pulse Oximetry 96 02/16/21 11:45 Oxygen Delivery Method Room Air 02/16/21 11:45 Oxygen Flow Rate 0 02/16/21 11:45 Pain Level 0 02/16/21 11:45 Comment 02/16/21 03:10 Intake & Output 02/15/21 02/16/21 02/16/21 23:59 11:59 23:59 Output Total 900 / 900 Balance -900 / -900 Weight 59.4 kg Output: Urine 900 / 900 Other: Urine Color Yellow Urine Appearance Clear Clear Voiding Methods Toilet Data Completed and Pending Labs on day of discharge: Labs from last 24 hours 02/16/21 02/16/21 02/15/21 06:25 06:25 19:30 WBC 3.22 L RBC 4.44 Hgb 13.6 Hct 42.5 MCV 95.7 H MCH 30.6 MCHC 32.0 RDW 12.3 Plt Count 205 MPV 10.5 Immature Gran % 0.0 Neutrophils % 51.3 Lymphocytes % 33.2 Monocytes % 10.6 Eosinophils % 3.7 Basophils % 1.2 Nucleated RBC % 0 Absolute Neutrophils 1.65 Absolute Lymphocytes 1.07 L Absolute Monocytes 0.34 Absolute Eosinophils 0.12 Absolute Basophils 0.04 D-Dimer Sodium 140 Potassium 3.8 Chloride 106 Carbon Dioxide 27.5 Anion Gap 6.5 BUN 11 Creatinine 1.0 Estimated GFR/1.73 m2 58.22 Glucose 92 Calcium 8.9 Total Bilirubin AST ALT Alkaline Phosphatase Troponin I < 0.05 Total Protein Albumin Lipase TSH Free T4 COVID-19 Source Nasal/Nares SARS-CoV-2 (PCR) Negative 02/15/21 02/15/21 02/15/21 18:05 18:05 15:00 WBC RBC Hgb Hct MCV MCH MCHC RDW Plt Count MPV Immature Gran % Neutrophils % Lymphocytes % Monocytes % Eosinophils % Basophils % Nucleated RBC % Absolute Neutrophils Absolute Lymphocytes Absolute Monocytes Absolute Eosinophils Absolute Basophils D-Dimer 133 Sodium Potassium Chloride Carbon Dioxide Anion Gap BUN Creatinine Estimated GFR/1.73 m2 Glucose Calcium Total Bilirubin AST ALT Alkaline Phosphatase Troponin I < 0.05 Total Protein Albumin Lipase 153 TSH Free T4 COVID-19 Source SARS-CoV-2 (PCR) 02/15/21 02/15/21 15:00 15:00 WBC 3.80 L RBC 4.74 Hgb 14.9 Hct 45.4 MCV 95.8 H MCH 31.4 MCHC 32.8 RDW 12.2 Plt Count 251 MPV 10.7 Immature Gran % 0.3 Neutrophils % 50.3 Lymphocytes % 36.8 Monocytes % 8.4 Eosinophils % 2.9 Basophils % 1.3 Nucleated RBC % 0 Absolute Neutrophils 1.91 Absolute Lymphocytes 1.40 Absolute Monocytes 0.32 Absolute Eosinophils 0.11 Absolute Basophils 0.05 D-Dimer Sodium 139 Potassium 3.7 Chloride 103 Carbon Dioxide 29.4 Anion Gap 6.6 BUN 10 Creatinine 0.9 Estimated GFR/1.73 m2 >= 60.00 Glucose 116 H Calcium 9.1 Total Bilirubin 0.4 AST 29 ALT 44 Alkaline Phosphatase 75 Troponin I < 0.05 Total Protein 7.8 Albumin 4.3 Lipase TSH 6.32 H Free T4 1.21 COVID-19 Source SARS-CoV-2 (PCR) [facility] Medical History Graves disease H/O radioactive iodine thyroid ablation HTN (hypertension) Hypothyroidism Leukocytopenia, unspecified with MG crisis Maternal care for incarceration of gravid uterus (1999) Neuropathy intermittent & persistent in hands, feet, neck and/or back Premature surgical menopause (2002) [facility] BSO at 36 yo 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 Surgical History History of (1999) History of hysterectomy (2002) Family History Mother Dementia Social History Smoking/Tobacco Use Status: Never Smoking risk assessment performed?: Yes Alcohol Intake: current Alcohol Intake frequency: a few times a month Alcohol type: beer and wine Drug use: Never Substance use type: does not use Details: no iv drug use Adopted: No Caregiver/Support person: No Foster care: No Household members: spouse Housing: house Number of Children: 1 Education Level: college Do you need help understanding health information?: Never 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
[2021-02-16 12:30] VITALS: PULSE 60
--- NOTE | 2021-02-16 12:32 | PDOC.CMDIS ---
- If Service Date Differs Date of service: 02/16/21 Time of Service: 12:32 LACE Index Scoring Tool - Questions: Length of Stay (in days): 1 Acuity (Admit via E.D.?): Yes E.D. Visits: 2 - Answers: Total Score: 6 Risk of Readmission: Low Risk Care Management Discharge Reason for Hospitalization: Chest pain. Discharge Plan: Cheyenne is discharged home with no new services. She will follow up with her PCP, treadmill stress test on an outpatient basis, and discharge plan of care as directed. Cheyenne is driving herself home via private vehicle as she drove herself to [facility] and her car remains in the parking lot. Patient/Family Education Needs: Review discharge instructions and follow up plan of care, including Ask Me Three and self management.
== END 2021-02-16 12:38 | disposition home or self-care (01) ==
LOC: ER 18:22 → MS 18:49
PROVIDERS: Student in an Organized Health Care Education/Training Program; Admitting Provider Family Medicine; Emergency Provider Physician Assistant; PCP Internal Medicine; Visit Provider Family Medicine
DX: R07.89 Other chest pain (principal); E89.0 Postprocedural hypothyroidism; G70.00 Myasthenia gravis without (acute) exacerbation; R11.0 Nausea
CPT/HCPCS: 36415; 71275; 80048; 80053; 83690; 87635; 93005; 99285; 71046; 84439; 84443; 84484; 85025; 85379; 93010; 99217; 99219; G0378; J3490

== ENCOUNTER 2021-04-01 00:49 | Outpatient (CLI) | payer BC, SELFPAY ==
--- NOTE | 2021-04-01 09:00 | ETT_ITS ---
APPROVED REPORT Exam: Exercise Treadmill Patient Location: Out-Patient Room/Bed: Stress Nurse: Kari Pope RN Ordering Provider:KATIE GO, Contact Number: [phone] BMI: 25.38 Baseline Rhythm: Sinus bradycardia Indications: Chest pain Medical History Medical History: Myesthemia gravis, hypothyroidism Cardiac Medications: levothyroxine Allergies: Morphine, regadenoson Cardiac Risk Factors: None Previous Cardiac Procedures: None Pretest Chest Pain Characteristics: None Exercise History: Physically active Physical Disabilities: None Lung Sounds: Clear to auscultation Heart Sounds: Regular Stress Test Details Test: Exercise stress testing was performed using a Daryl protocol. Rest Stress HR Resting HR Supine: 50 bpm Max Heart Rate (APMHR): 168 bpm Resting HR Standin bpm Target HR (85% APMHR): 142 bpm Max HR Achieved: 154 bpm % of APMHR: 91 Recovery HR: 66 bpm HR response to stress: Normal HR response to stress BP Resting BP Supine: 114/68 mmHg Resting BP Standin/84 mmHg Max BP: 172/86 mmHg Recovery BP: 134/82 mmHg BP response to stress: Normal blood pressure response to stress. ECG Resting ECG: Sinus Bradycardia Ectopy: None Stress ECG: Sinus Tachycardia ST Change: No significant ST segment changes noted Arrhythmia: None Recovery ECG: Sinus Rhythm Recovery ST Change: No significant ST segment changes noted Recovery Arrhythmia: None Clinical Reason for Termination: Difficulty monitoring EKG Stress Symptoms: General Fatigue Exercise duration: 9 min57 sec Highest Stage Reached: Stage 4: 4.2 mph at 16% grade. Exercise capacity: 11.73 METs Salazar Treadmill Score: 8.1 Rate Pressure Product: [id number] Stress ECG Conclusion 1. Resting electrocardiogram showed minor anterior ST-T abnormalities 2. Patient exercised on the Daryl protocol and completed a workload of 11.73 METS, limited by fatigue 3. Normal heart rate and blood pressure response to exercise. The patient achieved 91% of predicted heart rate for age 4. Electrocardiographically there was no evidence of myocardial ischemia 5. There were no significant dysrhythmias Salazar Treadmill Score is 8.1 which is Low risk. Stress Test Summary STAGE Time (mins) Speed (mph) Grade (%) HR BP SYMPTOMS METS Supine 50 114/68 Standing 65 118/84 SpO2 94% 1 3 1.7 10 85 128/96 SpO2 97% 4.6 2 6 2.5 12 110 148/70 SpO2 97% 7 3 9 3.4 14 143 162/94 SpO2 97% 10.2 1 min recovery 126 172/86 SpO2 98% 3 min recovery 72 160/78 SpO2 98% 6 min recovery 66 134/82 SpO2 98% Target HR achieved. Test terminated due to difficulty monitoring EKG.
== END 2021-04-01 01:09 ==
PROVIDERS: PCP Internal Medicine; Visit Provider Internal Medicine
DX: R00.1 Bradycardia, unspecified (principal)
CPT/HCPCS: 93017

== ENCOUNTER 2021-04-01 02:52 | Outpatient (CLI) | payer BC, SELFPAY ==
[2021-04-01 11:05] LABS: TSH 1.47 uIU/mL (0.36-3.74)
== END 2021-04-01 02:53 | disposition home or self-care (01) ==
LOC: LBO 02:52
PROVIDERS: PCP Internal Medicine; Visit Provider Internal Medicine
DX: E03.9 Hypothyroidism, unspecified (principal)
CPT/HCPCS: 36415; 84443